=== PATIENT | female | born 1965 | race Hispanic/Latino ===

== ENCOUNTER → 2019-02-18 | Outpatient (CLI) | payer BC | END | disposition home or self-care (01) | LOC: RAH 15:31 | PROVIDERS: ATTEND Physical Medicine & Rehabilitation | DX: M54.16 Radiculopathy, lumbar region (principal) | CPT/HCPCS: 72148 ==

== ENCOUNTER → 2019-02-23 | Outpatient (CLI) | payer BC | LOC: RAH 14:00 | PROVIDERS: ATTEND Physical Medicine & Rehabilitation | DX: K57.90 Diverticulosis of intestine, part unspecified, without perforation or abscess without bleeding (principal); M54.32 Sciatica, left side; Z90.710 Acquired absence of both cervix and uterus | CPT/HCPCS: 72195 ==